=== PATIENT | male | born 1995 | race Hispanic/Latino ===

== ENCOUNTER 2017-04-11 01:43 | Emergency (ER) | payer OTHER, SELFPAY ==
[2017-04-11 01:59] LABS: Bilirubin Negative (Negative); Blood, Urine Negative (Negative); Clarity CLEAR (Clear); Glucose, Urine (Dipstick) Negative (Negative); Leukocyte Negative (Negative); Nitrite Negative (Negative); Protein, Urine (Dipstick) Negative (Neg-Trace); Specific Gravity, Urine 1.014 (1.002-1.036); Urobilinogen 0.2 mg/dL (0.2-1.0)
[2017-04-11 02:12] LABS: #Basophils 0.2 thou/uL (0.0-0.2); #Eosinphils 0.1 thou/uL (0.0-0.7); #Lymphocytes 3.3 thou/uL (1.20-3.40); #Monocytes 0.6 thou/uL (0.11-0.59); #Neutrophils 4.1 thou/uL (1.40-6.50); %Basophils 1.9 % (0.0-1.0); %Eosinophils 0.9 % (0.0-10.0); %Lymphocytes 39.9 % (28.0-48.0); %Neutrophils 50.4 % (31.0-61.0); Hemoglobin 14.5 g/dL (14.0-18.0); Mean Corpuscular HGB CONC 34.5 g/dL (32.0-36.0); Mean Corpuscular Hemoglobin 32.2 pg (25.0-35.0); Mean Corpuscular Volume 93.5 fl (77.0-87.0); Mean Platelet Volume 7.4 fL (7.4-10.4); Platelet Count 275 thou/uL (130-400); RBC Distribution Width 11.4 % (11.5-14.5); Red Blood Cell (RBC) Count 4.51 mill/uL (4.00-5.20); White Blood Cell (WBC) Count 8.2 thou/uL (4.8-10.8)
[2017-04-11 02:25] LABS: Amphetamine Not Detected (NotDetected); Benzodiazepine Screen Not Detected (NotDetected); Cocaine Metabolite Screen Not Detected (NotDetected); Medtox Reader # READER 4; Methadone Not Detected (NotDetected); Methamphetamine Not Detected (NotDetected); Opiate Screen Not Detected (NotDetected); Phencyclidine (PCP) Not Detected (NotDetected); THC/Cannabinoid Screen Not Detected (NotDetected); Tricyclic Screen Not Detected (NotDetected)
[2017-04-11 02:26] LABS: Barbiturates Screen Not Detected (NotDetected); Medtox Control Line Valid? VALID (VALID); Oxycodone Screen Not Detected (NotDetected)
[2017-04-11 02:31] LABS: ALT (SGPT) 16 U/L (8-55); AST (SGOT) 18 U/L (10-45); Albumin 4.7 g/dL (3.5-5.0); Alkaline Phosphatase 87 U/L (Less than 750); Anion Gap 13 mmol/L (10-20); BUN (Urea Nitrogen) 14 mg/dL (8.4-21.0); Bilirubin, Total 0.3 mg/dL (0.2-1.2); CK (CPK) 281 U/L (30-200); Calc. Creatinine Clearance 0 mL/min (70-130); Calcium 9.8 mg/dL (7.8-10.44); Carbon Dioxide 25 mmol/L (22-29); Chloride 103 mmol/L (98-107); Estimated GFR-MDRD Greater than 90; Globulin 2.8 g/dL (2.4-3.5); Glucose 108 mg/dL (70-105); Potassium 3.5 mmol/L (3.5-5.1); Protein, Total 7.5 g/dL (6.0-8.3); Sodium 137 mmol/L (136-145)
== END 2017-04-11 06:45 | disposition home or self-care (01) ==
LOC: ERS 01:43
DX: R20.0 Anesthesia of skin (principal)
CPT/HCPCS: 36415; 80053; 80306; 81003; 82550; 85025; 99284

== ENCOUNTER 2018-03-07 16:14 | Emergency (ER) | payer BC, SELFPAY ==
[2018-03-07] MEDS ORDERED: Dicyclomine 20 MG TAB ONE (17:30)
[2018-03-07 17:34] LABS: #Basophils 0.1 thou/uL (0.0-0.2); #Lymphocytes 1.9 thou/uL (1.20-3.40); #Monocytes 0.9 thou/uL (0.11-0.59); #Neutrophils 8.2 thou/uL (1.40-6.50); %Basophils 0.7 % (0.0-1.0); %Eosinophils 0.4 % (0.0-10.0); %Monocytes 8.3 % (0.0-4.0); %Neutrophils 73.7 % (31.0-61.0); Hemoglobin 15.9 g/dL (14.0-18.0); Mean Corpuscular HGB CONC 34.7 g/dL (32.0-36.0); Mean Corpuscular Hemoglobin 31.4 pg (25.0-35.0); Mean Corpuscular Volume 90.6 fL (78.0-98.0); Platelet Count 361 thou/uL (130-400); RBC Distribution Width 11.4 % (11.5-14.5); Red Blood Cell (RBC) Count 5.07 mill/uL (4.00-5.20); White Blood Cell (WBC) Count 11.1 thou/uL (4.8-10.8)
[2018-03-07 17:37] LABS: Bilirubin Negative (Negative); Blood, Urine Negative (Negative); Clarity CLEAR (Clear); Glucose, Urine (Dipstick) Negative (Negative); Leukocyte Negative (Negative); Nitrite Negative (Negative); Protein, Urine (Dipstick) Negative (Neg-Trace); Urobilinogen 0.2 mg/dL (0.2-1.0)
[2018-03-07 18:16] LABS: ALT (SGPT) 22 U/L (8-55); AST (SGOT) 21 U/L (5-34); Albumin 4.5 g/dL (3.5-5.0); Alkaline Phosphatase 93 U/L (Less than 750); Anion Gap 14 mmol/L (10-20); BUN (Urea Nitrogen) 12 mg/dL (8.9-20.6); Bilirubin, Total 0.3 mg/dL (0.2-1.2); Calc. Creatinine Clearance 0 mL/min (70-130); Calcium 9.7 mg/dL (7.8-10.44); Carbon Dioxide 23 mmol/L (22-29); Chloride 104 mmol/L (98-107); Estimated GFR-MDRD Greater than 90; Globulin 3.3 g/dL (2.4-3.5); Glucose 94 mg/dL (70-105); Lipase 21 U/L (8-78); Potassium 3.7 mmol/L (3.5-5.1); Protein, Total 7.8 g/dL (6.0-8.3); Sodium 137 mmol/L (136-145)
--- NOTE | 2018-03-07 19:05 | ULT ---
RIGHT UPPER QUADRANT ULTRASOUND: Indication: Right upper quadrant pain. Comparison: None. FINDINGS: No focal hepatic lesion is evident. There are small echogenic nonshadowing foci within the lumen of t he gallbladder which may reflect small enhanced stones, adherent sludge, or possibly small gallbladde r polyps. Gallbladder wall measures 2.4 mm. No sonographic Kelly sign is reported. The common bile duct measures 2.3 mm. Limited visualization of the pancreas is unremarkable. Right kidney measured 9.1 x 4.3 x 5.2 cm. No focal renal lesion or hydronephrosis is evident. IMPRESSION: Small intraluminal echogenic foci within the gallbladder may reflect tiny adherent stones, small adhe rent sludge or possibly small gallbladder polyps. There is no sonographic evidence to suggest acute c holecystitis. POS: BH
== END 2018-03-07 19:23 | disposition home or self-care (01) ==
LOC: ERS 16:14
DX: R10.31 Right lower quadrant pain (principal); R10.10 Upper abdominal pain, unspecified; R19.7 Diarrhea, unspecified; F41.9 Anxiety disorder, unspecified; Z79.899 Other long term (current) drug therapy
CPT/HCPCS: 36415; 76705; 80053; 81003; 83690; 85025; 96360; 96361

== ENCOUNTER 2018-03-08 03:03 | Emergency (ER) | payer BC ==
[2018-03-08] MEDS ORDERED: Dicyclomine 20 MG TAB ONE (03:39)
[2018-03-08] MEDS ORDERED: Ketorolac Tromethamine 30 MG/ML VIAL ONE (04:04)
--- NOTE | 2018-03-08 08:48 | RAD ---
ACUTE ABDOMINAL SERIES: Date: 03/08/18 PROVIDED CLINICAL HISTORY: Abdominal pain. FINDINGS: The cardiac and mediastinal silhouette is within normal limits. Lungs appear clear. No pleural fluid or pneumothorax apparent. There are adjacent loops of mildly dilated bowel within the left mid abdomen. There is no evidence fo r pneumoperitoneum. No radiographically apparent urinary tract calculi. IMPRESSION: 1. No evidence for an acute cardiopulmonary process. 2. Several loops of adjacent nonspecific, mildly dilated small bowel. Consider CT if indicated. POS: OFF
== END 2018-03-08 04:35 | disposition home or self-care (01) ==
LOC: ERS 03:03
DX: K52.9 Noninfective gastroenteritis and colitis, unspecified (principal); F41.9 Anxiety disorder, unspecified; Z79.899 Other long term (current) drug therapy
CPT/HCPCS: 74022; 96372; J1885

== ENCOUNTER 2018-03-08 15:11 | Emergency (ER) | payer BC | END 2018-03-08 15:39 | disposition left against medical advice (07) | LOC: ERS 15:11 | DX: Z53.21 Procedure and treatment not carried out due to patient leaving prior to being seen by health care provider (principal) ==